=== PATIENT | female | born 1965 | race Caucasian/White ===

== ENCOUNTER 2023-12-19 08:22 | Emergency (ER) | payer BC, SELFPAY ==
[2023-12-19] VITALS (7 sets, daily range): BP systolic 98–128; BP diastolic 59–87; BMI 27.0
--- NOTE | 2023-12-19 08:54 | ED.GENMED ---
History of Present Illness
General
Chief Complaint: Abdominal Symptoms
Source: patient
Exam Limitations: none
Time Seen by Provider: 12/19/23 08:43
Travel History
Have you had any contact with someone who has COVID-19?: No
Do you have any symptoms of coronavirus? Fever > 100 degrees, chills, cough, shortness of breath, sore throat, loss of taste or smell, muscle aches, or headache?: No
History of Present Illness
History of Present Illness:
58 year old female presents complaining of left sided abdominal pain. This started several days ago. Sharp in nature. No blood in the stool. No fevers. No nausea or vomiting. No chest pain or shortness of breath. Pain is not pleuritic. No
urinary symptoms. No other complaints at this time.
Phy Exam
Physical Exam
Physical Exam:
General: Well-appearing female no acute respiratory distress
HEENT: Normocephalic atraumatic
Heart: Regular rate and rhythm no murmurs
Lungs: Clear to auscultation bilaterally no wheezing
Abdomen: Soft tender to the left mid and lower abdomen. Normal bowel sounds nondistended no guarding or rebound no costovertebral angle tenderness
Extremities: No cyanosis or edema no calf tenderness
Course
Orders/Labs/Results
Orders:
Orders
12/19/23 08:50
Complete Blood Count/With Diff Urgent
Comprehensive Metabolic Panel Urgent
Lipase Urgent
12/19/23 08:55
CT Abd/pelvis W Iv Cont Urgent
Comment:
Reason For Exam: llq pain
12/19/23 10:24
Lorazepam [Ativan] 1 mg IV NOW STA
12/19/23 12:12
Urinalysis Reflex To Culture Urgent
Date Specimen was Collected: 12/19/23
Time Specimen was Collected: 11:03
Abnormal Lab Results
12/19/23
08:50
WBC 4.0 L 10^3/uL
(4.8-10.8)
MCHC 32.6 L g/dL
(33.0-37.0)
MPV 12.1 H fL
(7.4-10.4)
Monocytes % 11.8 H %
(1.7-9.3)
BUN 21 H mg/dl
(7-17)
12/19/23 08:50
12/19/23 08:50
Vital Signs
Initial and Last Documented VS:
Initial Vital Signs
Temp Pulse Resp BP Pulse Ox
98.0 F 64 16 128/69 98
12/19/23 08:29 12/19/23 08:29 12/19/23 08:29 12/19/23 08:29 12/19/23 08:29
Last Documented Vital Signs
Temp Pulse Resp BP Pulse Ox
98.0 F 70 18 105/71 98
12/19/23 08:29 12/19/23 12:15 12/19/23 12:15 12/19/23 12:15 12/19/23 12:15
MDM/Problems Addressed
Differential Diagnosis Includes:
Left mid and lower abdominal pain. Differential could include diverticulitis constipation versus renal colic. Pain is not pleuritic. Patient did drive recently to [place] however there is no chest pain shortness of breath. Pain is not pleuritic.
Do not suspect PE. No signs of DVT on exam.
Check urinalysis and labs. Will order CT scan
*Critical Care Note
Total Time (30-74mins, 75-104mins- exclusive of procedures): Not Applicable
Update Note
Update Note:
CT abdomen pelvis with IV contrast was reviewed and is negative for acute finding. Urinalysis negative labs reviewed without finding. Abdominal pain unclear etiology
Musculoskeletal or constipation. Recommended follow-up. Stable for
ED Attending Note
-
Portions of this chart may have been created with voice recognition software.� Occasional wrong word or��sound alike� substitutions may have occurred due to the inherent limitations of voice recognition software.
Discharge Plan
Departure
Patient Disposition: Home (Routine Discharge)
Date of Disposition: 12/19/23
Time of Disposition: 12:50
Patient with high blood pressure during this ER visit?: No
Discharge Problem:
Abdominal pain
Instructions: Abdominal Pain
Prescriptions:
No Action
No Current Medications
0
Referrals:
Amos Martinez MD [Family Provider] -
Activity Restrictions/Additional Instructions:
Use ibuprofen or Tylenol for pain. Return here if worse otherwise follow-up with your doctors
Interventions
Interventions:
*Risk Screen - Suicide Last Done: 12/19/23 08:29
*General Assessment Last Done: 12/19/23 09:04
*Neglect/Abuse Screening Last Done: 12/19/23 08:39
ED- Fall Risk Assessment Last Done: 12/19/23 09:04
*ED COVID-19 Vaccine History Last Done: 12/19/23 08:29
VR-Viglts-Tetexvvveb Assessment Last Done: 12/19/23 08:40
[2023-12-19 09:11] LABS: % Basophils 0.5 % (0-2); % Eosinophils 2.5 % (0-6); % Lymphocytes 33.5 % (20.5-51.1); % Monocytes 11.8 % (1.7-9.3); % Neutrophils 51.7 % (42.2-75.2); Absolute Eosinophils 0.1 10^3/uL (0-0.7); Absolute Lymphocytes 1.3 10^3/uL (1.2-3.4); Absolute Monocytes 0.5 10^3/uL (0.1-0.6); Absolute Neutrophils 2.1 10^3/uL (1.4-6.5); Hematocrit 41.1 % (37.0-47.0); Hemoglobin 13.4 g/dL (12.0-16.0); Mean Corp Hgb Conc. 32.6 g/dL (33.0-37.0); Mean Corpuscular Hgb 27.2 pg (27.0-31.0); Mean Corpuscular Volume 83.4 fL (81.0-99.0); Mean Platelet Volume 12.1 fL (7.4-10.4); Nucleated Red Blood Cells % 0 %; Platelet Count 202 10^3/uL (130-400); Red Blood Cell Count 4.93 10^6/uL (4.20-5.40); Red Cell Dist. Width 12.9 % (11.5-14.5)
[2023-12-19 09:29] LABS: ALT (SGPT) 25 U/L (0-35); AST (SGOT) 30 U/L (14-36); Alkaline Phosphatase 66 U/L (38-126); Blood Urea Nitrogen 21 mg/dl (7-17); Calcium 9.7 mg/dl (8.4-10.2); Carbon Dioxide 28 mmol/L (22-30); Chloride 102 mmol/L (98-107); Estimated Creatinine Clearance 91 ml/min; Glucose 91 mg/dl (70-99); Potassium 4.1 mmol/L (3.5-5.1); Sodium 138 mmol/L (135-145); Total Bilirubin 0.6 mg/dl (0.2-1.3); Total Protein 6.6 g/dl (6.3-8.2); eGFR > 60.00
[2023-12-19 10:20] LABS: Lipase 126 U/L (23-300)
[2023-12-19] MEDS: ATIVAN 1 MG IV (10:30)
[2023-12-19 12:24] LABS: Urine Albumin Negative (Neg - Trace); Urine Bilirubin Negative (Negative); Urine Character Clear (Clear); Urine Color Yellow; Urine Glucose Negative (Negative); Urine Ketone Negative (Negative); Urine Leukocyte Negative (Negative); Urine Nitrite Negative (Negative); Urine Occult Blood Negative (Negative); Urine Urobilinogen Negative (Neg - 1+)
== END 2023-12-19 13:25 | disposition home or self-care (01) ==
LOC: EMR 08:22
PROVIDERS: Physician Assistant; EMERGENCY PHYSICIAN Emergency Medicine; FAMILY PHYSICIAN Internal Medicine
DX: R10.9 Unspecified abdominal pain (principal)
CPT/HCPCS: 99285; 96374; 74177; 80053; 81003; 83690; 85025; Q9967

== ENCOUNTER → 2025-09-10 14:57 | Outpatient (REF) | payer BC, SELFPAY | LOC: RAD 14:57 | PROVIDERS: ATTENDING PHYSICIAN Internal Medicine | DX: M54.6 Pain in thoracic spine (principal); J40 Bronchitis, not specified as acute or chronic | CPT/HCPCS: 71046 ==